=== PATIENT | female | born 1985 | race Caucasian/White ===

== ENCOUNTER 2023-05-01 19:03 | Emergency (ER) | payer BC, SELFPAY ==
[2023-05-01] VITALS (10 sets, daily range): BP systolic 129–152; BP diastolic 95–115; PULSE 90–111; RESP 10–22; TEMP 36.7; O2SAT 99–100
--- NOTE | ~2023-05-01 | US_ITS ---
EXAMINATION: US pelvic complete w TV DATE: 05/01/2023 22:36 INDICATION: Right lower quadrant abdominal pain. TECHNIQUE: Multiple transabdominal and transvaginal sonographic images of the pelvis were obtained. COMPARISON: CT abdomen and pelvis 05/01/2023 FINDINGS: TRANSABDOMINAL ULTRASOUND: The uterus measures 6.0 x 2.9 x 3.7 cm. There is no free fluid in the pelvis. TRANSVAGINAL ULTRASOUND: The endometrial complex measures 3 mm in thickness. The ovaries are not visualized. IMPRESSION: 1. Ovaries not visualized. 2. Normal uterus. Reviewed, dictated and finalized at location E. BING MACHINE OPERATOR
--- NOTE | ~2023-05-01 | CT_ITS ---
EXAMINATION: CT abdomen pelvis w con DATE: 05/01/2023 21:48 INDICATION: Right lower quadrant abdominal pain. Nausea and vomiting. TECHNIQUE: Computed tomography (CT) of the abdomen and pelvis was performed with 100 mL Omnipaque 350 intravenous contrast. Automated exposure control and iterative reconstruction technique were employe d. The dose-length product was 237.62 mGy-cm. COMPARISON: None. FINDINGS: The visualized portions of the lung bases demonstrate mild atelectasis. No pleural effusion . The heart size is normal. No pericardial effusion. The liver, gallbladder, spleen, pancreas, adrena l glands, and kidneys are normal. There are no dilated loops of bowel. There are no dilated loops of bowel. The appendix is normal. There are no pathologically enlarged lymph nodes. There is no free int raperitoneal fluid. There is mild lumbar spondylosis. IMPRESSION: 1. No etiology for the patient's symptoms. Reviewed, dictated and finalized at location E. L STRINGER
[2023-05-01 20:07] LABS: Basophils Percent Auto 0.2 % (0.2-1.2); Eosinophils Percent Auto 0.2 % (0-4.4); Hematocrit 44.9 % (37.0-47.0); Immature Granulocyte Absolute 0.02 K/mm3 (0.00-0.031); Immature Granulocyte Percent A 0.2 % (0-0.5); Lymphocytes Percent Auto 5.3 % (18.3-44.2); Mean Corpuscular HGB Conc 33.4 g/dl (32-36); Mean Corpuscular Hemoglobin 30.7 pg (26-34); Mean Corpuscular Volume 91.8 fl (80-100); Mean Platelet Volume 9.7 fl (7.4-10.4); Monocytes Absolute Auto 0.3 K/mm3 (0.1-0.6); Monocytes Percent Auto 3.3 % (2.6-8.5); Neutrophils Absolute Auto 8.6 K/mm3 (1.3-6.7); Neutrophils Percent Auto 90.8 % (45.5-73.1); Platelet Count Result 303 k/mm3 (150-375); Red Blood Count 4.89 M/mm3 (4.2-5.4); Red Cell Distribution Width 12.1 % (11.5-14.5); White Blood Count 9.4 K/mm3 (4.5-10.0)
[2023-05-01 20:11] LABS: Appearance Urine Cloudy (Clear); Bacteria Urine 1+ /hpf; Bilirubin Urine Negative (Negative); Blood Urine Negative (Negative); Color Urine Dark Yellow (Yellow); Glucose Urine UA Negative (Negative); Ketones Urine 3+ mg/dL (Negative); Leukocyte Esterase Ur 1+ LEU/UL (Negative); Nitrate Urine Negative (Negative); Non Pathogenic Casts 0-2; Protein Urine Negative (Negative); RBC Urine 0-2 /hpf (0-2); Squamous Epithelial Cell Urine Many /hpf (Few); Urobilinogen Urine 0.2 mg/dL (<2.0); pH Urine 5.5 (5.0-9.0)
[2023-05-01 20:14] LABS: Add Urine Microscopic? YES
[2023-05-01 20:17] LABS: Alanine Aminotransferase 16 U/L (6-35); Albumin Level 4.3 g/dL (3.5-5.1); Alkaline Phosphatase 49 U/L (38-126); Anion Gap 9 mmol/L (8-16); Aspartate Amino Transferase 24 U/L (14-36); Bilirubin,Total 1.2 mg/dL (0.2-1.3); Blood Urea Nitrogen 16 mg/dL (7-17); Calcium 9.2 mg/dL (8.4-10.2); Carbon Dioxide 27 mmol/L (22-30); Chloride 102 mmol/L (98-107); Estimated CRCL calculation 78 ml/min; Estimated Glomerular Filt Rate > 60; Glucose 87 mg/dL (65-110); Lipase 61 U/L (23-300); Potassium 4.2 mmol/L (3.4-5.0); Sodium 138 mmol/L (137-145)
--- NOTE | 2023-05-01 21:25 | PC.NURSE ---
Pt called out x2 in pain. PHILIPP Dumont made aware.
[2023-05-01] MEDS: MORPHINE SULFATE (*CRX) 4 MG/ML INJ IV PUSH (21:35)
[2023-05-01] MEDS: ONDANSETRON INJ 4 MG/2 ML VIAL IV PUSH (21:35)
[2023-05-01] MEDS: SODIUM CHLORIDE 0.9% IV 1,000 ML 999 ML IV CONT ×2 (21:35→23:47)
--- NOTE | 2023-05-01 21:57 | ED.ABDPAIN ---
HPI - Abdominal Pain General Chief Complaint: Abdominal Pain Stated Complaint: abd pain Time Seen by Provider: 05/01/23 20:15 Source: patient Mode of arrival: ambulatory Limitations: no limitations History of Present Illness HPI narrative: Patient is a 37-year-old female who presents ED with report of abdominal pain. Patient reports pain began around 3 p.m. today. It was present in her periumbilical region and radiates to her right lower quadrant. She attempted taking Tylenol, but denied improvement. She reported having onset of nausea, vomiting, diarrhea after the onset of pain. She does still feel nauseous currently, which she feels is related to the pain. She also reported having a fever up to 101? F at home today. States overall she just feels unwell. Denies urinary complaints, cough or cold symptoms. Related Data Allergies Allergy/AdvReac Type Severity Reaction Status Date / Time No Known Allergies Allergy Verified 05/01/23 20:00 Review of Systems Review of Systems: CONSTITUTIONAL: See HPI. ENT: Denies rhinorrhea, congestion, sore throat. CARDIOVASCULAR: Denies chest pain. RESPIRATORY: Denies cough or dyspnea. GASTROINTESTINAL: See HPI. GENITOURINARY: Denies dysuria or hematuria. All systems reviewed & are unremarkable except as noted in HPI and below Exam Narrative: GENERAL: Uncomfortable appearing, well-nourished, non-toxic, in no acute distress. HEAD: Normocephalic, atraumatic. RESPIRATORY: Airway patent, respirations nonlabored. Clear to auscultation bilaterally, no rales, rhonchi, wheezing. CARDIOVASCULAR: Regular rate and rhythm without murmurs, rubs, or gallops. ABDOMINAL: Soft, diffuse tenderness in epigastric region, RUQ, RLQ, suprapubic region, nondistended. Normoactive BS. MUSCULOSKELETAL: Moves all extremities. No gross deformities. SKIN: Warm, dry, normal color. NEURO: A&O X3. Speech clear. Cranial nerves II-XII grossly intact. No ataxic movements. PSYCHIATRIC: Anxious, tearful. Normal interaction. Course Vital Signs Vital signs: Vital Signs Temperature 98.1 F 05/01/23 19:10 Pulse Rate 111 H 05/01/23 19:10 Respiratory Rate 20 05/01/23 19:10 Blood Pressure 137/96 H 05/01/23 19:10 Pulse Oximetry 100 05/01/23 19:10 Oxygen Delivery Room Air 05/01/23 19:10 Temperature 98.1 F 05/01/23 19:10 Pulse Rate 102 H 05/01/23 21:17 Respiratory Rate 22 H 05/01/23 21:17 Blood Pressure 145/115 H 05/01/23 21:17 Pulse Oximetry 100 05/01/23 21:17 Oxygen Delivery Room Air 05/01/23 19:10 MDM - Abdominal Pain MDM Narrative Medical decision making narrative: Patient presented to ED with periumbilical /right lower quadrant abdominal pain, N/V/D. Patient tachycardic upon arrival. Afebrile. Anxious and tearful upon my evaluation, calling out for pain medicine. Cbc without leukocytosis, WBC 9.4. CMP unremarkable. Normal LFTs and lipase. Urinalysis with possible infection, though many squamous cells. Will send for culture and treat as this could be contributing to lower abd pain. CT scan of abdomen/pelvis obtained and w/o acute findings. Will obtain ultrasound to rule out ovarian etiology. Ultrasound was unable to clearly visualize ovaries, but did not note any abnormal in either adnexal regions, no free fluid. Patient updated on lab and imaging results. She is feeling better with supportive therapy. Feels reassured by workup. Discussed possibility of gastroenteritis, viral GI bug. Discussed management of such. Feel patient is stable for discharge home with continued outpatient management as needed. Will prescribe Bentyl and Zofran for home use. Keflex for UTI. Patient in agreement with this plan. Feels comfortable w/ discharge home. Given strict return precautions, including worsening right lower quadrant pain. Patient voiced understanding. Discharged in stable condition. VS improved and stable upon D/C. Medical Records Attestation: I reviewed th
[2023-05-01] MEDS: DICYCLOMINE HCL 10 MG CAPSULE 20 MG PO (22:34)
[2023-05-01] MEDS: ACETAMINOPHEN 500 MG TABLET 1000 MG PO (22:34)
[2023-05-01 23:16] LABS: Influenza A QL RT-PCR Negative (Negative); Influenza B QL RT-PCR Negative (Negative); RSV RNA, RT-PCR Negative (Negative); SARS-CoV-2 RNA PCR Negative (Negative)
[2023-05-02] MEDS: KETOROLAC 30 MG/ML VIAL (*BKC) IV PUSH (00:13)
[2023-05-02 01:43] VITALS: BP 125/92; PULSE 91; RESP 18; O2SAT 100
== END 2023-05-02 01:45 | disposition home or self-care (01) ==
PROVIDERS: Emergency Medicine; Emergency Provider Physician Assistant
DX: N30.00 Acute cystitis without hematuria (principal); R11.2 Nausea with vomiting, unspecified; R10.31 Right lower quadrant pain
CPT/HCPCS: 36415; 74177; 76830; 76856; 80053; 81001; 81025; 83690; 85025; 87086; 87088; 87637; 96361; 96374; 96375; 99284; A9270; J1885; J2270; J2405; J7030; Q9967

== ENCOUNTER 2024-02-29 18:28 | Emergency (ER) | payer BC, SELFPAY ==
--- NOTE | 2024-02-29 18:31 | PC.NURSE ---
pt left d/t wait times.
== END 2024-02-29 18:38 | disposition left against medical advice (07) ==
LOC: ANHED 18:32
DX: Z53.21 Procedure and treatment not carried out due to patient leaving prior to being seen by health care provider (principal)
CPT/HCPCS: 99199